=== PATIENT | female | born 1980 | race Caucasian/White ===

== ENCOUNTER 2022-02-01 11:27 | Observation (INO) ==
[2022-02-01] MEDS ORDERED: 0.9 % Sodium Chloride 1,000 ML IVC ONE (12:19)
[2022-02-01] MEDS ORDERED: diazePAM 10 MG/2 ML SYRINGE IVP STA (12:19)
[2022-02-01] MEDS ORDERED: Tdap (Boostrix) Vaccine 0.5 ML SYRINGE IM ONE (12:23)
[2022-02-01 12:39] LABS: Basophils % 0.5 %; Eosinophils # 0.1 K/mcL (0.0-0.6); Hematocrit 47.1 % (35.3-44.9); Hemoglobin 15.6 g/dL (11.5-15.4); Immature Granulocytes % 0.1 % (0-4); Lymphocytes # 2.6 K/mcL (0.6-4.6); Lymphocytes % 29.9 %; Mean Corpuscular HGB Conc 33.1 g/dL (31.6-35.5); Mean Corpuscular Hemoglobin 29.8 pg (28.0-33.3); Mean Corpuscular Volume 90.1 fL (83.0-100.0); Mean Platelet Volume 11.9 fL (9.4-12.4); Monocytes # 0.4 K/mcL (0.0-1.3); Monocytes % 4.9 %; Neutrophils # 5.5 K/mcL (1.6-8.9); Platelet Count 168 K/mcL (140-400); Red Blood Count 5.23 M/mcL (3.82-4.97); Red Cell Distribution Width 12.7 % (11.5-14.5); Segmented Neutrophils % 63.6 %; White Blood Count 8.7 K/mcL (4.3-11.1)
[2022-02-01 13:01] LABS: BUN/Creatinine Ratio 14 (6-26); Blood Urea Nitrogen 12 mg/dL (6-20); Calcium 8.5 mg/dL (8.6-10.3); Carbon Dioxide 23 mEq/L (23-29); Chloride 109 mEq/L (98-107); Glucose 99 mg/dL (70-105); Osmolality,Calculated 286 (280-300); Potassium 3.6 mEq/L (3.5-5.1); Sodium 138 mEq/L (136-145); Troponin I < 0.03 ng/mL (< 0.04); eGFR For African Americans > 60 (> 60); eGFR For Non-African Americans > 60 (> 60)
[2022-02-01] MEDS ORDERED: Naloxone 0.4 MG/ML INJ IVP PRN (13:46)
[2022-02-01] MEDS ORDERED: Isovue-370 500 ML BOTTLE IVP ONE (14:03)
[2022-02-01] MEDS ORDERED: Perflutren Lipid Microsphere 1.3 ML in 0.9 % Sodium Chloride 8.7 ML IVP PRN (14:05)
[2022-02-01] MEDS ORDERED: Metoclopramide 10 MG/2 ML VIAL IVP ONE (14:08)
[2022-02-01] MEDS ORDERED: SUMAtriptan 6 MG/0.5 ML SQ ONE (14:08)
[2022-02-01] MEDS: Nicotine 21 MG PATCH.TD24 TD SCH (16:18)
[2022-02-01] MEDS: *HR* Heparin 5,000 UNIT/ML VIAL SQ SCH (22:46)
[2022-02-02 01:47] LABS: Basophils % 0.5 %; Eosinophils # 0.1 K/mcL (0.0-0.6); Eosinophils % 1.3 %; Hematocrit 42.6 % (35.3-44.9); Immature Granulocytes % 0.5 % (0-4); Lymphocytes # 3.1 K/mcL (0.6-4.6); Lymphocytes % 35.4 %; Mean Corpuscular HGB Conc 32.9 g/dL (31.6-35.5); Mean Corpuscular Hemoglobin 29.5 pg (28.0-33.3); Mean Corpuscular Volume 89.9 fL (83.0-100.0); Mean Platelet Volume 11.7 fL (9.4-12.4); Monocytes # 0.6 K/mcL (0.0-1.3); Monocytes % 6.8 %; Neutrophils # 4.8 K/mcL (1.6-8.9); Platelet Count 164 K/mcL (140-400); Red Blood Count 4.74 M/mcL (3.82-4.97); Red Cell Distribution Width 12.7 % (11.5-14.5); Segmented Neutrophils % 55.5 %; White Blood Count 8.7 K/mcL (4.3-11.1)
[2022-02-02 02:19] LABS: BUN/Creatinine Ratio 14 (6-26); Blood Urea Nitrogen 12 mg/dL (6-20); Calcium 8.3 mg/dL (8.6-10.3); Carbon Dioxide 22 mEq/L (23-29); Chloride 111 mEq/L (98-107); Glucose 98 mg/dL (70-105); Osmolality,Calculated 290 (280-300); Phosphorous 4.2 mg/dL (2.7-4.5); Potassium 3.8 mEq/L (3.5-5.1); Sodium 140 mEq/L (136-145); eGFR For African Americans > 60 (> 60); eGFR For Non-African Americans > 60 (> 60)
[2022-02-02 02:21] LABS: Thyroid Stimulating Hormone 4.128 mcIU/mL (0.340-5.600)
[2022-02-02 02:31] LABS: Folate 8.8 ng/mL (3.0-16.0)
[2022-02-02 03:13] VITALS: O2SAT 96
[2022-02-02] MEDS: *HR* Heparin 5,000 UNIT/ML VIAL SQ SCH (06:13)
[2022-02-02 07:04] VITALS: BP 129/70; PULSE 72; TEMP 97.6
[2022-02-02] MEDS: Nicotine 21 MG PATCH.TD24 TD SCH (08:37)
[2022-02-02] MEDS ORDERED: Aspirin Enteric Coated 325 MG Tablet PO SCH (09:00)
== END 2022-02-02 14:40 | disposition home or self-care (01) ==
LOC: EMEROOARM 11:27 → 3BNU 11:27 → SUATTDRO 14:04 → 3BNU 14:49
PROVIDERS: ADMIT Internal Medicine; ATTEND Internal Medicine